=== PATIENT | female | born 1975 | race Caucasian/White ===

== ENCOUNTER 2019-04-26 18:02 | Emergency (ER) | payer SELFPAY ==
[2019-04-26 19:46] VITALS: BP 141/85
--- NOTE | 2019-04-26 21:11 | Event Note ---
ED Screening Note Date of service: 04/26/19 Time: 21:09 ED Screening Note: 43 y o female presents with vaginal bleeding x today states 10 weeks gestation, pelv cramping LMP: 03/01/19 unsure This initial assessment/diagnostic orders/clinical plan/treatment(s) is/are subject to change based on patients health status, clinical progression and re- assessment by fellow clinical providers in the ED. Further treatment and workup at subsequent clinical providers discretion. Patient/guardian urged not to elope from the ED as their condition may be serious if not clinically assessed and managed. Initial orders include: ua, quant, US
[2019-04-26 21:34] LABS: Basophils # (Auto) 0.1 K/mm3 (0.0-0.1); Basophils % (Auto) 0.6 % (0.0-1.8); Eosinophils # (Auto) 0.1 K/mm3 (0.0-0.4); Eosinophils % (Auto) 1.4 % (0.0-4.3); Hematocrit 38.9 % (30.3-42.9); Hemoglobin 12.7 gm/dl (10.1-14.3); Lymphocytes # (Auto) 2.7 K/mm3 (1.2-5.4); Lymphocytes % (Auto) 28.3 % (13.4-35.0); Mean Corpuscular HGB Conc 33 % (30-34); Mean Corpuscular Volume 82 fl (79-97); Monocytes # (Auto) 0.8 K/mm3 (0.0-0.8); Monocytes % (Auto) 8.5 % (0.0-7.3); Platelet Count 341 K/mm3 (140-440); Red Blood Count 4.73 M/mm3 (3.65-5.03); Red Cell Distribution Width 16.6 % (13.2-15.2)
--- NOTE | 2019-04-26 22:32 | Ultrasound Report ---
OB Ultrasound HISTORY: vag bleed. TECHNIQUE: Grayscale and color Doppler imaging performed. COMPARISON: None FINDINGS: Transabdominal and endovaginal technique utilized. Uterus measures 14.7 x 7.4 x 9.5 cm with an intrauterine cystic structure showing a mean diameter of 2.2 cm which would correlate with an EGA of 7 weeks and 1 day. The clinical age is 8 weeks and 0 days . There is a small yolk sac but no pole is identified at this time. A 2.3 cm right ovarian cyst is likely functional. Ovaries otherwise appear unremarkable. IMPRESSION: 1. Questionable early intrauterine as above. Correlate with beta hCG level and if needed fo llow-up pelvic ultrasound. 2. Likely functional right ovarian cyst. Signer Name: Ben Cosby MD Signed: 04/26/2019 10:28 PM Workstation Name: [id number]
[2019-04-26 23:01] LABS: Bacteria,Urine 4+ /HPF (Negative); Bilirubin,Urine NEG (Negative); Blood,Urine NEG (Negative); Color,Urine Yellow (Yellow); Hyaline Casts,Urine 5 /LPF; Mucus,Urine 3+ /HPF; Protein,Urine <15 mg/dL mg/dL (Negative); Sperm,Urine FEW /HPF (NP); Urobilinogen,Urine < 2.0 mg/dL (<2.0)
--- NOTE | 2019-04-26 23:02 | Emergency Department Report ---
HPI - General Chief Complaint: Vaginal Bleeding Time Seen by Provider: 04/26/19 22:44 - HPI HPI: Room 39 The patient is a 43-year-old female presenting with a chief complaint of suprapubic pressure and vaginal spotting. The patient states she found out she was 03/29/2019. Patient states yesterday she began having intermittent suprapubic pressure and noticed cloudy urine. Patient states today she had light vaginal spotting and did not require the usage of sanitary napkins. Patient denies dysuria but admits to nausea and vomiting. Patient denies history of fever. The patient states she has not yet seen an ERP DEVELOPER for this Location: [See above] Duration: [See above] Quality: [See above] Severity: [See above] Timing: [See above] Context: [See above] Modifying factors: [See above] Associated signs and symptoms: [see above] ED Past Medical Hx - Past Medical History Previous Medical History?: Yes Hx Hypertension: Yes - Surgical History Past Surgical History?: No - Family History Family history: no significant - Social History Smoking Status: Never Smoker Substance Use Type: None (denies illicit drug use), Alcohol (occasional) - Medications Home Medications: Home Medications Medication Instructions Recorded Confirmed Last Taken Type Nitrofurantoin [place]/M-Cryst 100 mg PO Q12HR #14 capsule 04/26/19 Unknown Rx [Macrobid CAP] ED Review of Systems ROS: Stated complaint: 10WKS PREG/BLEEDING/ABD PAIN Other details as noted in HPI Constitutional: fever ENT: denies: throat pain Respiratory: no symptoms reported Cardiovascular: denies: chest pain Endocrine: no symptoms reported Gastrointestinal: abdominal pain, nausea, vomiting Genitourinary: other (cloudy urine). denies: dysuria, hematuria Musculoskeletal: denies: back pain Neurological: denies: headache Physical Exam - Physical Exam Vital Signs: Vital Signs 04/26/19 19:27 Temperature 98.2 F Pulse Rate 74 Respiratory 18 Rate Blood Pressure 141/85 O2 Sat by Pulse 100 Oximetry Physical Exam: GENERAL: The patient is well-developed well-nourished female sitting on stretcher not appearing to be in acute distress. [] HEENT: Normocephalic. Atraumatic. Extraocular motions are intact. Patient has moist mucous membranes. NECK: Supple. Trachea midline CHEST/LUNGS: Clear to auscultation. There is no respiratory distress noted. HEART/CARDIOVASCULAR: Regular. There is no tachycardia. There is no gallop rub or murmur. ABDOMEN: Abdomen is soft, nontender. Patient has normal bowel sounds. There is no abdominal distention. SKIN: There is no rash. There is no edema. There is no diaphoresis. NEURO: The patient is awake, alert, and oriented. The patient is cooperative. The patient has normal speech MUSCULOSKELETAL: There is no evidence of acute injury. ED Course Vital Signs 04/26/19 19:27 Temperature 98.2 F Pulse Rate 74 Respiratory 18 Rate Blood Pressure 141/85 O2 Sat by Pulse 100 Oximetry ED Medical Decision Making - Lab Data Result diagrams: 04/26/19 21:16 Laboratory Tests 04/26/19 04/26/19 04/26/19 20:30 21:16 21:16 WBC 9.6 RBC 4.73 Hgb 12.7 Hct 38.9 MCV 82 MCH 27 L MCHC 33 RDW 16.6 H Plt Count 341 Lymph % (Auto) 28.3 [place] % (Auto) 8.5 H Eos % (Auto) 1.4 Baso % (Auto) 0.6 Lymph # 2.7 Kings # 0.8 Eos # 0.1 Baso # 0.1 Seg Neutrophils % 61.2 Seg Neutrophils # 5.9 HCG, Quant [id number] H Urine Color Yellow Urine Turbidity Cloudy Urine pH 6.0 Ur Specific [place] 1.021 Urine Protein <15 mg/dl Urine Glucose (UA) Neg Urine Ketones Neg Urine Blood Neg Urine Nitrite Neg Urine Bilirubin Neg Urine Urobilinogen < 2.0 Ur Leukocyte Esterase Tr Urine WBC (Auto) 3.0 Urine RBC (Auto) 1.0 U Epithel Cells (Auto) 27.0 H Urine Bacteria (Auto) 4+ Hyaline Casts 5 Urine Mucus 3+ Urine Sperm Few Blood Type 04/26/19 21:16 WBC RBC Hgb Hct MCV MCH MCHC RDW Plt Count Lymph % (Auto) Kings % (Auto) Eos % (Auto) Baso % (Auto) Lymph # Kings # Eos # Baso # Seg Neutrophils % Seg Neutrophils # HCG, Quant Urine Color Urine Turbidity Urine pH Ur Specific [place] Urine Protein Urine Glucose (UA) Urine Ketones Urine Blood Urine Nitrite Urine Bilirubin Urine Urobilinogen Ur Leukocyte Esterase Urine WBC (Auto) Urine RBC (Auto) U Epithel Cells (Auto) Urine Bacteria (Auto) Hyaline Casts Urine Mucus Urine Sperm Blood Type B POSITIVE - Radiology Data Radiology results: report reviewed (pelvic ultrasound), image reviewed (pelvic ultrasound) [facility] [address] [place] [address] Ultrasound Report Signed Patient: HERBERT MIX MR#: [id number] : 1975 Acct:[id number] Age/Sex: 43 / F ADM Date: 04/26/19 Loc: ED Attending Dr: Ordering Physician: DONNY PACHECO Date of Service: 04/26/19 Procedure(s): US OB transvaginal Accession Number(s): [id number] cc: DONNY PACHECO OB Ultrasound HISTORY: vag bleed. TECHNIQUE: Grayscale and color Doppler imaging performed. COMPARISON: None FINDINGS: Transabdominal and endovaginal technique utilized. Uterus measures 14.7 x 7.4 x 9.5 cm with an intrauterine cystic structure showing a mean diameter of 2.2 cm which would correlate with an EGA of 7 weeks and 1 day. The clinical age is 8 weeks and 0 days. There is a small yolk sac but no pole is identified at this time. A 2.3 cm right ovarian cyst is likely functional. Ovaries otherwise appear unremarkable. IMPRESSION: 1. Questionable early intrauterine as above. Correlate with beta hCG level and if needed follow-up pelvic ultrasound. 2. Likely functional right ovarian cyst. Signer Name: Ben Cosby MD Signed: 04/26/2019 10:28 PM Workstation Name: [id number] Transcribed By: BEVERLY Dictated By: Ben Cosby MD Electronically Authenticated By: Ben Cosby MD Signed Date/Time: 04/26/192227 DD/ 25 TD/TT: - Differential Diagnosis threatened , missed , UTI Critical care attestation.: If time is entered above; I have spent that time in minutes in the direct care of this critically ill patient, excluding procedure time. ED Disposition Clinical Impression: Threatened , UTI (urinary tract infection) Disposition: DC- TO HOME OR SELFCARE Is pt being admited?: No Does the pt Need Aspirin: No Condition: Stable Instructions: Threatened Miscarriage (ED) Additional Instructions: Return to the emergency department should you develop worsening symptoms, inability to tolerate food or liquids, high fever or any other concerns Prescriptions: Nitrofurantoin [place]/M-Cryst [Macrobid CAP] 100 mg PO Q12HR #14 capsule Referrals: [facility] [Outside] - 3-5 Days KAREN DELEON MD [Staff Physician] - [facility] (Dr. Hernandez is an ERP DEVELOPER. Please follow up with her to be established as a patient) Time of Disposition: 23:16
== END 2019-04-26 23:25 | disposition home or self-care (01) ==
LOC: ED 18:02
DX: O20.0 Threatened abortion (principal); O23.41 Unspecified infection of urinary tract in pregnancy, first trimester; O16.1 Unspecified maternal hypertension, first trimester; Z3A.08 8 weeks gestation of pregnancy; Z91.018 Allergy to other foods
CPT/HCPCS: 36415; 76801; 76817; 81001; 84702; 85025; 86900; 86901

== ENCOUNTER 2019-04-30 15:57 | Emergency (ER) | payer SELFPAY ==
--- NOTE | 2019-04-30 17:09 | Emergency Department Report ---
Blank Doc - Documentation Documentation: 43-year-old female that presents with vaginal bleeding and pelvic pain. This initial assessment/diagnostic orders/clinical plan/treatment(s) is/are subject to change based on patient's health status, clinical progression and re- assessment by fellow clinical providers in the ED. Further treatment and workup at subsequent clinical providers discretion. Patient/guardians urged not to elope from the ED as their condition may be serious if not clinically assessed and managed. Initial orders include: 1- Patient sent to [facility] for further evaluation and treatment 2- UA 3- labs 4- US OB
[2019-04-30 17:41] LABS: Basophils # (Auto) 0.1 K/mm3 (0.0-0.1); Basophils % (Auto) 0.6 % (0.0-1.8); Eosinophils # (Auto) 0.1 K/mm3 (0.0-0.4); Eosinophils % (Auto) 1.1 % (0.0-4.3); Hematocrit 39.5 % (30.3-42.9); Hemoglobin 13.1 gm/dl (10.1-14.3); Lymphocytes # (Auto) 2.1 K/mm3 (1.2-5.4); Lymphocytes % (Auto) 25.2 % (13.4-35.0); Mean Corpuscular HGB Conc 33 % (30-34); Mean Corpuscular Volume 81 fl (79-97); Monocytes # (Auto) 0.6 K/mm3 (0.0-0.8); Monocytes % (Auto) 6.5 % (0.0-7.3); Platelet Count 343 K/mm3 (140-440); Red Blood Count 4.85 M/mm3 (3.65-5.03); Red Cell Distribution Width 16.6 % (13.2-15.2)
--- NOTE | 2019-04-30 19:59 | Ultrasound Report ---
Obstetrical ultrasound. 04/30/2019. HISTORY: Vaginal bleeding. Pelvic pain. FINDINGS: Imaging was performed by transabdominally and endovaginally. The uterus measures 17 x 7.4 x 11.4 cm and is heterogeneous. Evaluation of the endometrial cavity demonstrates a gestational sac da ok 7 weeks 0 days containing a yolk sac. No pole is identified. Negative for implantation blee d. Left ovary measures 3.1 x 1.5 x 1.9 cm. Right ovary measures 4 x 3.2 x 3.1 cm and contains a 2.4 cm c yst. IMPRESSION: 1. Early gestational sac dated 7 weeks containing a yolk sac only. 2. Large heterogeneous uterus. 3. 2.4 cm complex cyst right ovary. Signer Name: Henry Mishra MD Signed: 04/30/2019 7:54 PM Workstation Name: [id number]
--- NOTE | 2019-04-30 22:04 | Emergency Department Report ---
ED Abdominal Pain HPI - General Chief Complaint: Abdominal Pain Stated Complaint: 7 WEEKS PREG/ABD PAIN/HIGH BP Time Seen by Provider: 04/30/19 17:09 Source: patient Mode of arrival: Ambulatory Limitations: No Limitations - History of Present Illness Initial Comments: Ms. Yu is a 43-year-old female that presents with vaginal bleeding and pelvic pain. Seen three days ago for vaginal bleeding, dx with early gestation preg and UTI, presents today for follow up US, pt states symptoms are improving, vaginal bleeding is resolved at this time. pt has appointment with OBGYN tomorrow. MD Complaint: abdominal pain Onset/Timin -: week(s) Location: LLQ, RLQ, suprapubic Radiation: LLQ, RLQ, suprapubic Severity scale (0 -10): 3 Quality: aching Consistency: intermittent Improves With: nothing Worsens With: nothing Associated Symptoms: denies: nausea, vomiting, fever, dysuria - Related Data LMP (females 10-50): 2 months Previous Rx's Medication Instructions Recorded Last Taken Type Nitrofurantoin [place]/M-Cryst 100 mg PO Q12HR #14 capsule 04/26/19 Unknown Rx [Macrobid CAP] Acetaminophen [Tylenol] 650 mg PO QID PRN #30 capsule 04/30/19 Unknown Rx Ondansetron [Zofran Odt] 4 mg PO Q8HR PRN #21 tab.rapdis 04/30/19 Unknown Rx Allergies Allergy/AdvReac Type Severity Reaction Status Date / Time iodine Allergy Anaphylaxis Verified 04/30/19 15:59 ED Review of Systems ROS: Stated complaint: 7 WEEKS PREG/ABD PAIN/HIGH BP Other details as noted in HPI Constitutional: denies: chills, fever Eyes: denies: eye pain, eye discharge, vision change ENT: denies: ear pain, throat pain Respiratory: denies: cough, shortness of breath, wheezing Cardiovascular: denies: chest pain, palpitations Endocrine: no symptoms reported Gastrointestinal: denies: abdominal pain, nausea, diarrhea, constipation, melena Genitourinary: abnormal menses. denies: urgency, dysuria, frequency, hematuria, discharge, dyspareunia Musculoskeletal: back pain Skin: denies: rash, lesions Neurological: denies: headache, weakness, paresthesias Psychiatric: denies: anxiety, depression Hematological/Lymphatic: denies: easy bleeding, easy bruising ED Past Medical Hx - Past Medical History Previous Medical History?: Yes Hx Hypertension: Yes - Surgical History Past Surgical History?: No - Social History Smoking Status: Never Smoker Substance Use Type: None - Medications Home Medications: Home Medications Medication Instructions Recorded Confirmed Last Taken Type Nitrofurantoin [place]/M-Cryst 100 mg PO Q12HR #14 capsule 04/26/19 Unknown Rx [Macrobid CAP] Acetaminophen [Tylenol] 650 mg PO QID PRN #30 capsule 04/30/19 Unknown Rx Ondansetron [Zofran Odt] 4 mg PO Q8HR PRN #21 tab.rapdis 04/30/19 Unknown Rx ED Physical Exam - General Limitations: No Limitations General appearance: alert, in no apparent distress - Head Head exam: Present: atraumatic, normocephalic - Eye Eye exam: Present: normal appearance, PERRL, EOMI Pupils: Present: normal accommodation - ENT ENT exam: Present: mucous membranes moist - Neck Neck exam: Present: normal inspection - Respiratory Respiratory exam: Present: normal lung sounds bilaterally. Absent: respiratory distress, wheezes, stridor, chest wall tenderness - Cardiovascular Cardiovascular Exam: Present: regular rate, normal rhythm, normal heart sounds. Absent: systolic murmur, diastolic murmur, rubs, gallop - GI/Abdominal GI/Abdominal exam: Present: soft, normal bowel sounds. Absent: distended, tenderness, guarding, rebound, rigid, bruit, hernia - Rectal Rectal exam: Present: deferred - External exam: Present: other (pt deferrs vaginal exam to OBGYN follow up tomorrow ) - Extremities Exam Extremities exam: Present: normal inspection, full ROM, normal capillary refill - Back Exam Back exam: Present: normal inspection, full ROM. Absent: tenderness, CVA tenderness (R), CVA tenderness (L), rash noted - Neurological Exam Neurological exam: Present: alert, oriented X3, CN II-XII intact, normal gait, reflexes normal. Absent: motor sensory deficit - Psychiatric Psychiatric exam: Present: normal affect, normal mood - Skin Skin exam: Present: warm, dry, intact, normal color. Absent: rash ED Course Vital Signs 04/30/19 16:00 Temperature 98.4 F Pulse Rate 89 Respiratory 18 Rate Blood Pressure 153/97 O2 Sat by Pulse 100 Oximetry ED Medical Decision Making - Lab Data Result diagrams: 04/30/19 17:21 - Radiology Data Radiology results: report reviewed, image reviewed Ordering Physician: ALFONSO NEWBERRY NP Date of Service: 04/30/19 Procedure(s): US OB <= 14 weeks fetus Accession Number(s): [id number] cc: ALFONSO NEWBERRY NP Obstetrical ultrasound. 04/30/2019. HISTORY: Vaginal bleeding. Pelvic pain. FINDINGS: Imaging was performed by transabdominally and endovaginally. The uterus measures 17 x 7.4 x 11.4 cm and is heterogeneous. Evaluation of the endometrial cavity demonstrates a gestational sac dated 7 weeks 0 days containing a yolk sac. No pole is identified. Negative for implantation bleed. Left ovary measures 3.1 x 1.5 x 1.9 cm. Right ovary measures 4 x 3.2 x 3.1 cm and contains a 2.4 cm cyst. IMPRESSION: 1. Early gestational sac dated 7 weeks containing a yolk sac only. 2. Large heterogeneous uterus. 3. 2.4 cm complex cyst right ovary. Signer Name: Henry Mishra MD Signed: 04/30/2019 7:54 PM Workstation Name: [id number] Transcribed By: ES Dictated By: Henry Mishra MD Electronically Authenticated By: Henry Mishra MD Signed Date/Time: 04/30/191953 DD/ 49 TD/TT: - Medical Decision Making US : Yok sac 7 weeks gestation no hear tones, right ovarian cyst. pt os B pos., pt has OBGYN appointment tomorrow. Critical care attestation.: If time is entered above; I have spent that time in minutes in the direct care of this critically ill patient, excluding procedure time. ED Disposition Clinical Impression: Threatened Ovarian cyst Qualifiers: Laterality: right Qualified Code(s): N83.201 - Unspecified ovarian cyst, right side Disposition: - TO HOME OR SELFCARE Is pt being admited?: No Does the pt Need Aspirin: No Condition: Stable Instructions: Threatened Miscarriage (ED), Ovarian Cyst (ED) Prescriptions: Acetaminophen [Tylenol] 650 mg PO QID PRN #30 capsule PRN Reason: pain Ondansetron [Zofran Odt] 4 mg PO Q8HR PRN #21 tab.rapdis PRN Reason: Nausea And Vomiting Referrals: JOHN DAVIDSON MD [Staff Physician] - 3-5 Days Forms: Work/School Release Form(ED) Time of Disposition: 22:01
[2019-04-30 22:16] VITALS: BP 179/112
== END 2019-04-30 22:16 | disposition home or self-care (01) ==
LOC: ED 15:57
DX: O20.0 Threatened abortion (principal); O34.81 Maternal care for other abnormalities of pelvic organs, first trimester; N83.201 Unspecified ovarian cyst, right side; O16.1 Unspecified maternal hypertension, first trimester; Z37.9 Outcome of delivery, unspecified; Z91.041 Radiographic dye allergy status; Z3A.01 Less than 8 weeks gestation of pregnancy
CPT/HCPCS: 36415; 76801; 76817; 84702; 85025; 86900; 86901

== ENCOUNTER 2019-05-12 03:36 | Emergency (ER) | payer SELFPAY ==
[2019-05-12 03:45] VITALS: BP 145/88
[2019-05-12 04:10] LABS: Basophils # (Auto) 0.1 K/mm3 (0.0-0.1); Basophils % (Auto) 0.5 % (0.0-1.8); Eosinophils # (Auto) 0.2 K/mm3 (0.0-0.4); Eosinophils % (Auto) 1.7 % (0.0-4.3); Hematocrit 37.3 % (30.3-42.9); Hemoglobin 12.1 gm/dl (10.1-14.3); Lymphocytes # (Auto) 3.4 K/mm3 (1.2-5.4); Lymphocytes % (Auto) 28.1 % (13.4-35.0); Mean Corpuscular HGB Conc 32 % (30-34); Mean Corpuscular Volume 82 fl (79-97); Monocytes # (Auto) 0.8 K/mm3 (0.0-0.8); Platelet Count 307 K/mm3 (140-440); Red Blood Count 4.56 M/mm3 (3.65-5.03)
--- NOTE | 2019-05-12 05:01 | Ultrasound Report ---
US OB <= 14 weeks fetus, US OB transvaginal INDICATION / CLINICAL INFORMATION: vaginal bleeding. COMPARISON: None available. FINDINGS: Transabdominal and transvaginal imaging was performed. No endometrial fluid collections are seen. The endometrial echo complex measures 1.3 cm. There is a h eterogeneous mildly hypoechoic lesion within the uterine fundus which measures 4.0 x 4.1 x 2.5 cm, th is is likely a fibroid. Ovaries were not visualized transvaginally or transabdominally. No abnormality is seen within either adnexa. No free fluid is seen in the pelvis. IMPRESSION: 1. No sonographic evidence of intrauterine . 2. Ovaries were not visualized. 3. No free fluid. No adnexal lesions are identified. Signer Name: Cosme Hernandez MD Signed: 05/12/2019 4:56 AM Workstation Name: [id number]
[2019-05-12] MEDS ORDERED: oxyCODONE /ACETAMINOPHEN 5-325MG TAB PO ONE (06:03)
--- NOTE | 2019-05-12 06:14 | Emergency Department Report ---
ED HPI - General Chief complaint: Vaginal Bleeding Stated complaint: 12WKS PREG/VAG BLEEDING/POSS MISCARRIAGE Time Seen by Provider: 05/12/19 05:52 Source: patient Mode of arrival: Ambulatory Limitations: No Limitations - History of Present Illness Initial comments: 43-year-old -[place] female presents to the emergency room for vaginal bleeding and severe pelvic pain. Patient states that she was 12 weeks . Patient states that she has been spotting since Tuesday and awoken this morning with severe pain. Patient states that she came in on 04/26/2023 abdominal pain. Patient states that she didn't came back on 04/30/2023 vaginal bleeding and abdominal pain. Patient comes back today with worsening pain increased vaginal bleeding with clots and tissue. Patient never followed up with an OB provider. Patient reports she is taking Tylenol last dose at 10 PM. Complaint: vaginal bleeding Onset/Timin -: days(s) Location: pelvis Severity scale (0 -10): 10 Quality: cramping Consistency: constant Improves with: none Worsens with: none Associated symptoms: vaginal bleeding Vaginal bleeding: heavy, clots :: Yes Number of weeks : 12 Last menstrual period: 02/04/19 Pre-salvador care: none - Related Data Previous Rx's Medication Instructions Recorded Last Taken Type Nitrofurantoin [place]/M-Cryst 100 mg PO Q12HR #14 capsule 04/26/19 Unknown Rx [Macrobid CAP] Acetaminophen [Tylenol] 650 mg PO QID PRN #30 capsule 04/30/19 Unknown Rx Ondansetron [Zofran Odt] 4 mg PO Q8HR PRN #21 tab.rapdis 04/30/19 Unknown Rx Ibuprofen [Motrin 600 MG tab] 600 mg PO Q8H PRN #20 tablet 05/12/19 Unknown Rx Allergies Allergy/AdvReac Type Severity Reaction Status Date / Time iodine Allergy Anaphylaxis Verified 04/30/19 15:59 ED Review of Systems ROS: Stated complaint: 12WKS PREG/VAG BLEEDING/POSS MISCARRIAGE Other details as noted in HPI Comment: All other systems reviewed and negative ED Past Medical Hx - Past Medical History Previous Medical History?: Yes Hx Hypertension: Yes - Surgical History Past Surgical History?: No - Social History Smoking Status: Never Smoker Substance Use Type: None - Medications Home Medications: Home Medications Medication Instructions Recorded Confirmed Last Taken Type Nitrofurantoin [place]/M-Cryst 100 mg PO Q12HR #14 capsule 04/26/19 Unknown Rx [Macrobid CAP] Acetaminophen [Tylenol] 650 mg PO QID PRN #30 capsule 04/30/19 Unknown Rx Ondansetron [Zofran Odt] 4 mg PO Q8HR PRN #21 tab.rapdis 04/30/19 Unknown Rx Ibuprofen [Motrin 600 MG tab] 600 mg PO Q8H PRN #20 tablet 05/12/19 Unknown Rx ED Physical Exam - General Limitations: No Limitations General appearance: alert, in no apparent distress - Head Head exam: Present: atraumatic, normocephalic - Eye Eye exam: Present: normal appearance - ENT ENT exam: Present: mucous membranes moist - Neck Neck exam: Present: normal inspection - External exam: Present: normal external exam Speculum exam: Present: vaginal bleeding - Extremities Exam Extremities exam: Present: normal inspection - Back Exam Back exam: Present: normal inspection - Neurological Exam Neurological exam: Present: alert, oriented X3 - Psychiatric Psychiatric exam: Present: normal affect, normal mood - Skin Skin exam: Present: warm, dry, intact, normal color. Absent: rash ED Course Vital Signs 05/12/19 03:39 Temperature 98.1 F Pulse Rate 76 Respiratory 18 Rate Blood Pressure 145/88 O2 Sat by Pulse 100 Oximetry ED Medical Decision Making - Lab Data Result diagrams: 05/12/19 03:51 Laboratory Tests 05/12/19 05/12/19 03:51 03:51 WBC 12.1 H RBC 4.56 Hgb 12.1 Hct 37.3 MCV 82 MCH 27 L MCHC 32 RDW 16.0 H Plt Count 307 Lymph % (Auto) 28.1 [place] % (Auto) 7.0 Eos % (Auto) 1.7 Baso % (Auto) 0.5 Lymph # 3.4 [place] # 0.8 Eos # 0.2 Baso # 0.1 Seg Neutrophils % 62.7 Seg Neutrophils # 7.6 HCG, Quant 447.6 H - Radiology Data Radiology results: report reviewed Patient: HERBERT MIX MR#: [id number] : 1975 Acct:[id number] Age/Sex: 43 / F ADM Date: 05/12/19 Loc: ED Attending Dr: Ordering Physician: ED DOC, MD Date of Service: 05/12/19 Procedure(s): US OB transvaginal Accession Number(s): [id number] cc: SANDRA VIERA MD US OB <= 14 weeks fetus, US OB transvaginal INDICATION / CLINICAL INFORMATION: vaginal bleeding. COMPARISON: None available. FINDINGS: Transabdominal and transvaginal imaging was performed. No endometrial fluid collections are seen. The endometrial echo complex measures 1.3 cm. There is a heterogeneous mildly hypoechoic lesion within the uterine fundus which measures 4.0 x 4.1 x 2.5 cm, this is likely a fibroid. Ovaries were not visualized transvaginally or transabdominally. No abnormality is seen within either adnexa. No free fluid is seen in the pelvis. IMPRESSION: 1. No sonographic evidence of intrauterine . 2. Ovaries were not visualized. 3. No free fluid. No adnexal lesions are identified. Signer Name: Cosme Hernandez MD Signed: 05/12/2019 4:56 AM Workstation Name: [id number] Transcribed By: FABIO Dictated By: Cosme Hernandez MD Electronically Authenticated By: Cosme Hernandez MD Signed Date/Time: 05/12/19 0456 DD/ 0455 TD/TT: - Medical Decision Making 43-year-old -[place] female presents to the emergency room for vaginal bleeding and severe pelvic pain. Patient states that she was 12 weeks . Patient states that she has been spotting since Tuesday and awoken this morning with severe pain. Patient states that she came in on 04/26/2023 abdominal pain. Patient states that she didn't came back on 04/30/2023 vaginal bleeding and abdominal pain. Patient comes back today with worsening pain increased vaginal bleeding with clots and tissue. Patient never followed up with an OB provider. Patient reports she is taking Tylenol last dose at 10 PM. View of chart shows patient's hCG Quant on 04/26/2019 was approximately 22,000 then on 04/30/2019 linares decreased to 16,000 and today her hCG is 447. Discussed with [employer] from my OB regarding patient's case. She recommends patient use ibuprofen for pain management and to follow-up with OB. Discussed the patient the conversation that I had with the midwifery. Critical care attestation.: If time is entered above; I have spent that time in minutes in the direct care of this critically ill patient, excluding procedure time. ED Disposition Clinical Impression: Miscarriage Disposition: DC-01 TO HOME OR SELFCARE Is pt being admited?: No Does the pt Need Aspirin: No Condition: Stable Instructions: Spontaneous Miscarriage (ED) Additional Instructions: Follow up with [facility]. Prescriptions: Ibuprofen [Motrin 600 MG tab] 600 mg PO Q8H PRN #20 tablet PRN Reason: Pain Referrals: [facility] [Provider Group] - 3-5 Days
== END 2019-05-12 07:14 | disposition home or self-care (01) ==
LOC: ED 03:36
DX: O03.9 Complete or unspecified spontaneous abortion without complication (principal); O16.1 Unspecified maternal hypertension, first trimester; Z3A.12 12 weeks gestation of pregnancy
CPT/HCPCS: 36415; 76801; 76817; 84702; 85025